=== PATIENT | male | born 1945 | race Caucasian/White ===

== ENCOUNTER 2016-10-28 07:34 | Inpatient (IN) | payer OTHER ==
[2016-10-21 12:04] LABS: BASOPHILS 0.3 %; BASOPHILS ABSOLUTE 0.02 10/3/uL (0.0-0.16); EOSINOPHILS 2.5 %; EOSINOPHILS ABSOLUTE 0.16 10/3/uL (0.0-0.53); HEMATOCRIT 42.9 % (40.0-51.0); HEMOGLOBIN 14.3 g/dL (13.6-17.8); IMMATURE GRANULOCYTES 0.2 %; IMMATURE GRANULOCYTES ABSOLUTE 0.01 10/3/uL (0.0-0.11); LYMPHOCYTES 26.3 %; LYMPHOCYTES ABSOLUTE 1.65 10/3/uL (0.67-4.30); MEAN CORPUS HGB CONC 33.3 g/dL (32.0-36.0); MONOCYTES 8.8 %; MONOCYTES ABSOLUTE 0.55 10/3/uL (0.21-1.20); NEUTROPHILS 61.9 %; NEUTROPHILS ABSOLUTE 3.89 10/3/uL (2.02-8.40); PLATELET COUNT 169 10/3/uL (150-400); RED CELL COUNT 4.93 10/6/uL (4.7-6.1); WHITE BLOOD CELLS 6.3 10/3/uL (4.5-10.5)
[2016-10-21 12:09] LABS: MANUAL DIFF NO %
[2016-10-21 12:10] LABS: INTERNATIONAL NORMAL RATI 1.1 UNITS (-); PARTIAL THROMBO TIME 33.8 SEC (22.5-37.2); PROTIME (NOT ORD) 14.5 SEC (12.0-14.5)
[2016-10-21 12:21] LABS: A/G RATIO 0.9 (0.7-1.9); ALBUMIN 3.7 G/DL (3.5-5.0); ALKALINE PHOSPHATASE 122 U/L (45-117); BUN (BLOOD UREA NITROGEN) 18 MG/DL (6-23); CALCIUM, SERUM 8.8 MG/DL (8.5-10.4); CHLORIDE, SERUM 106 MMOL/L (96-112); CO2 (CARBON DIOXIDE) 28 MMOL/L (24-34); CREATININE 1.14 MG/DL (0.70-1.30); GFR AFRICAN AMERICAN 76 ML/MIN (>=60); GFR NON AFRICAN AMERICAN 65 ML/MIN (>=60); GLUCOSE, SERUM 86 MG/DL (60-99); POTASSIUM, SERUM 4.6 MMOL/L (3.5-5.3); SGOT(AST) 28 U/L (5-40); SGPT(ALT) 38 U/L (5-65); SODIUM, SERUM 142 MMOL/L (135-148); TOTAL BILIRUBIN 0.4 MG/DL (0-1.2); TOTAL PROTEIN 7.7 G/DL (6.0-8.5)
--- NOTE | ~2016-10-28 | OP ---
Record Of Operation [facility] [address] [place]. [address] NAME: ELISABETH REHMAN : 49 STATUS : ADM IN [facility]#: [id number] AGE: 71 ADM/REG DATE : 10/28/16 MR#: [id number] REPORT SERV DATE: 10/28/16 DICTATED BY: GRICEL RUBALCAVA III DATE: 10/28/16 REPORT STATUS : Draft TRANSCRIBED BY: MODDavid DATE: 10/28/16 DATE OF PROCEDURE: 10/28/2016 PREOPERATIVE DIAGNOSIS: Symptomatic subxiphoid incisional hernia. POSTOPERATIVE DIAGNOSIS: Symptomatic subxiphoid incisional hernia. PROCEDURE: Repair of subxiphoid incisional hernia with lightweight Prolene mesh. ANESTHESIA: General with intubation. COMPLICATIONS: None. ESTIMATED BLOOD LOSS: Less than 5 mL. SPECIMENS: None. DRAINS: Alexandre-Paul in subcutaneous tissue. LAP AND SPONGE COUNT: Correct x3. BRIEF HISTORY: This 71-year-old male presented with a symptomatic subxiphoid incisional hernia. This is related to a previous mediastinotomy or mediastinal incision. It was felt that open repair of this hernia was indicated. This procedure, the risks, benefits, alternatives, including but not limited to the risk for bleeding, infection, enterotomy, injury to abdominal structure, postop small bowel obstruction, ileus, seroma formation, hematoma formation, recurrence of the hernia, infection of the mesh, or enterocutaneous fistula requiring removal of the mesh, and unforeseen complications including deep venous thrombosis, pulmonary embolus, myocardial infarction, stroke, pneumonia, and , were fully explained to the patient prior to surgery. The expected length of recovery was explained. The patient's questions were answered. He understood the risks and agreed to surgery as planned. PROCEDURE IN DETAIL: After being properly identified and after discussing risks of surgery with the patient's family again in the preoperative area, and after identifying the hernia with him in the preoperative area, the patient was taken to the operating room and placed in the supine position on the operating room table. General anesthesia was administered and he was intubated without difficulty. The abdomen was prepped and draped sterilely in the usual fashion. After an appropriate "time-out" per JCAHO standards, a vertically oriented elliptical shaped incision was made around the scar in the subxiphoid region directly over the hernia. The entire old scar, which was very wide and then slightly was excised. The incision was continued down through the subcutaneous tissue. Hemostasis was controlled with cautery. The incision continued down to the fascial defect. The fascial defect itself was very large. The fascial edges had retracted laterally on either side for about 4-5 cm leaving a fairly large defect. Record Of Operation [facility] [address] [place]. [address] NAME: ELISABETH REHMAN : 49 STATUS : ADM IN PAT#: [id number] AGE: 71 ADM/REG DATE : 10/28/16 MR#: [id number] REPORT SERV DATE: 10/28/16 DICTATED BY: GRICEL RUBALCAVA III DATE: 10/28/16 REPORT STATUS : Draft TRANSCRIBED BY: AI DATE: 10/28/16 Using sharp dissection, the skin and subcutaneous tissue around the defect anteriorly was fully mobilized for several centimeters so as to fully define the fascial edges anteriorly. There were adhesions on the underside of the fascia posteriorly, and these were carefully divided around the periphery of the defect so as to fully define the edges of the fascia anteriorly and posteriorly. The patient's skin and fascia in this area was very tight and again the lateral edges of the defect had retracted widely on either side. We selected a lightweight Ventralight Prolene mesh. This was cut to the appropriate size to lie beneath the defect so as to overlap the edges of the fascia by 2-3 cm. The mesh was then placed beneath the fascia and secured around the edges of the fascia with interrupted short segments of #1 Prolene. Upon completion of this, the mesh lay nicely posterior to the edges of the fascia and covered the defect. It was not twisted or kinked in anyway and not under any tension. The area was irrigated copiously with saline. Hemostasis was assured. A Alexandre-Paul drain was brought through a separate stab wound and placed in the subcutaneous tissue. The subcutaneous tissue was closed with interrupted 2-0 Vicryl sutures. The skin was closed with a running subcuticular 4-0 Monocryl stitch. It was injected with 0.5% Marcaine. Dressings were applied. Anesthesia was reversed. The patient was taken to the recovery room in stable condition. He tolerated the procedure well. His family was informed of the results of surgery. The patient will remain in the hospital for postoperative care for pain control. RHJ/MODL Gricel Rubalcava III, M.D. / [id number] CC: Adelita Carreno III, M.D.
--- NOTE | ~2016-10-28 | PREOPHP ---
PreOp History and Physical [address] [place]. [address] NAME: ELISABETH REHMAN : 49 STATUS : PRE [facility]#: [id number] AGE: 71 ADM/REG DATE : MR#: [id number] REPORT SERV DATE: 10/28/16 DICTATED BY: GRICEL RUBALCAVA III DATE: 10/13/16 REPORT STATUS : Draft TRANSCRIBED BY: MODDavid DATE: 10/13/16 HISTORY OF PRESENT ILLNESS: This 71-year-old male comes to the operating room for repair of symptomatic enlarging subxiphoid incisional hernia. The patient has a large subxiphoid incisional hernia. This is related to a previous midline sternotomy performed for a cardiac disease. The patient comes now for open repair of this hernia. PAST MEDICAL HISTORY: 1. Hypertension. 2. History of ascending aortic aneurysm repaired in June 2016. 3. Obesity. 4. Hyperlipidemia. PAST SURGICAL HISTORY: Includes coronary artery bypass graft and aortic aneurysm repair, rotator cuff repair, and inguinal hernia repair. MEDICATIONS: Vitamin C, vitamin B, magnesium, iron, simvastatin, metoprolol, potassium, aspirin. FAMILY HISTORY: Positive for hypertension and heart disease. SOCIAL HISTORY: The patient has no tobacco or alcohol use. ALLERGIES: CIPRO, ALLER-CHLOR, ANTIHISTAMINE, AMPICILLIN, VICODIN. REVIEW OF SYSTEMS: The patient complains of shortness of breath and back pain. PHYSICAL EXAMINATION: GENERAL: Large, obese male, in no acute distress. He is alert and oriented x3. VITAL SIGNS: Blood pressure 120/79, pulse 68, temperature 98.6. HEENT: Unremarkable. Cranial nerves 2 through 12 were normal. LUNGS: Clear. CARDIAC: Normal. ABDOMEN: Soft, nontender. The patient has a large subxiphoid incisional hernia. The defect is about 4 to 5 cm in size. The hernia is reducible. EXTREMITIES: Normal. ASSESSMENT: 1. A 71-year-old male with enlarging symptomatic subxiphoid incisional hernia. 2. Hypertension. 3. Hyperlipidemia. 4. Obesity. 5. Coronary artery disease. 6. History of ascending aortic aneurysm repair. 7. History of coronary artery bypass graft. PLAN: The patient comes to the operating room now for repair of this incisional hernia. PreOp History and Physical [address] [address] NAME: ELISABETH REHMAN : 49 STATUS : PRE [facility] PAT#: [id number] AGE: 71 ADM/REG DATE : MR#: [id number] REPORT SERV DATE: 10/28/16 DICTATED BY: GRICEL RUBALCAVA III DATE: 10/13/16 REPORT STATUS : Draft TRANSCRIBED BY: AI DATE: 10/13/16 This procedure, the risks, benefits, and alternatives, including not limited to the risk for bleeding, infection, enterotomy, injury to the abdominal structure, postop small bowel obstruction, ileus, incisional hernia, dehiscence, seroma formation, hematoma formation, infection of mesh or enterocutaneous fistula requiring removal of mesh and unforeseen complications including deep venous thrombosis, pulmonary embolus, myocardial infarction, stroke, pneumonia, and , have been fully and completely explained to the patient and his family prior to surgery. The fact that this is a major operation with risk for major morbidity and mortality has been explained as well as expected length of recovery. In fact the location of the hernia is in a difficult location to repair and the risk for recurrence are higher given the location of the repair in the subxiphoid region has been explained. The patient's questions have been answered. He clearly understands the risks and agrees to surgery as planned. MARGOTH/AI Gricel Rubalcava III, M.D. / [id number]
[~2016-10-28 07:34] MED LIST: ACET500CAP PO; ASAB PO; BL CHROMIUM200 MCG PO; CO Q-10100 MG PO; COREG6 PO; DCN100 PO; FEOSOL200 MG PO; FRUIT PO; L40 PO; LIPITOR40 PO; LOP50 PO; MAG OXIDE250 MG PO; MAGNESIUM CITRATE PO; MULTIPLE VIT PO; PLAVIX PO; POTASSIUM PO; PRESERVISION A1 EACH PO; Q-SORB50 MG OR; THERAPEUTIC PO; ULTRAM50 PO; VITAMIN B PO; VITAMIN B-121000 MC1 SL; VITAMIN C500 M3 PO; VITAMIN D1000 UNI1 PO; VITAMIN D400 UNI1 PO; VITC500 PO; Vitamin B-12 PO; ZINC GLUCON50 MG PO; Zinc PO; [UNRECOGNIZED DRUG - OTHER] PO; [UNRECOGNIZED DRUG - OTHER] PO
[2016-10-29 07:07] LABS: BASOPHILS 0.1 %; BASOPHILS ABSOLUTE 0.01 10/3/uL (0.0-0.16); EOSINOPHILS 0.1 %; EOSINOPHILS ABSOLUTE 0.01 10/3/uL (0.0-0.53); HEMATOCRIT 40.3 % (40.0-51.0); HEMOGLOBIN 13.9 g/dL (13.6-17.8); IMMATURE GRANULOCYTES 0.1 %; IMMATURE GRANULOCYTES ABSOLUTE 0.01 10/3/uL (0.0-0.11); LYMPHOCYTES ABSOLUTE 1.37 10/3/uL (0.67-4.30); MEAN CORPUS HGB CONC 34.5 g/dL (32.0-36.0); MEAN CORPUSCULAR HEMOGLOB 29.7 pg (26.0-34.0); MEAN CORPUSCULAR VOLUME 86.1 fL (80-100); MEAN PLATELET VOLUME 11.5 fL (9.2-13.0); MONOCYTES 8.5 %; MONOCYTES ABSOLUTE 0.83 10/3/uL (0.21-1.20); NEUTROPHILS 77.2 %; NEUTROPHILS ABSOLUTE 7.55 10/3/uL (2.02-8.40); PLATELET COUNT 166 10/3/uL (150-400); RBC DISTRIBUTION WIDTH 14.2 % (12.0-16.0); RED CELL COUNT 4.68 10/6/uL (4.7-6.1)
[2016-10-29 07:11] LABS: MANUAL DIFF NO %; WHITE BLOOD CELLS 9.8 10/3/uL (4.5-10.5)
[2016-10-29] MEDS ORDERED: PERCOCET 7.5/321 TAB PO (07:53)
== END 2016-10-29 11:27 | disposition home or self-care (01) | DRG 355 ==
LOC: SDC 07:34 → SDC/OF 12:32 → 5SO 14:57
PROVIDERS: Surgery
PROC: 0WUF0JZ Supplement Abdominal Wall with Synthetic Substitute, Open Approach (ICD-10-PCS; principal; 2016-10-28 10:00)
DX: K43.2 Incisional hernia without obstruction or gangrene (principal); I10 Essential (primary) hypertension; Z98.890 Other specified postprocedural states; E66.9 Obesity, unspecified; Z68.31 Body mass index [BMI] 31.0-31.9, adult; I25.10 Atherosclerotic heart disease of native coronary artery without angina pectoris; Z95.5 Presence of coronary angioplasty implant and graft; K21.9 Gastro-esophageal reflux disease without esophagitis; Z79.899 Other long term (current) drug therapy; Z79.82 Long term (current) use of aspirin; Z88.8 Allergy status to other drugs, medicaments and biological substances; Z88.5 Allergy status to narcotic agent; Z88.1 Allergy status to other antibiotic agents
CPT/HCPCS: 71020; 80053; 85025; 85610; 85730; 87641; 93005; A9270-GY; C1781; J0690; J2270; J2405; J2710; J3010; P9045